=== PATIENT | male | born 2000 | race Hispanic/Latino ===

== ENCOUNTER 2025-03-30 18:56 | Inpatient (IN) | payer OTHER ==
[~2025-03-30] VITALS: Ht 170.2 cm; Wt 59.7 kg
[2025-03-30 20:27] LABS: PLATELET COUNT, AUTOMATED 230 10^3/uL (150-450)
[2025-03-30 20:45] LABS: ETHYL ALCOHOL (ETHANOL) < 0.003 % (0.000-0.010)
[2025-03-30 20:47] LABS: ALT/SGPT 12 U/L (7.0-40); AST/SGOT 11 U/L (<34); CALCIUM LEVEL 9.5 MG/DL (8.5-10.1); CARBON DIOXIDE LEVEL 27 MMOL/L (20-31); CHLORIDE LEVEL 103 MMOL/L (98-107); CREATININE FOR GFR 1.00 MG/DL (0.70-1.30); GLOMERULAR FILTRATION RATE > 90.0 (>60); POTASSIUM SERUM 3.9 MMOL/L (3.5-5.1); SALICYLATE LEVEL < 3.0 MG/DL (<30); SODIUM LEVEL 143 MMOL/L (136-145)
[2025-03-30 20:54] LABS: AMPHETAMINES LEVEL URINE NEGATIVE (NEGATIVE); BARBITURATES URINE NEGATIVE (NEGATIVE); BENZODIAZEPINES URINE NEGATIVE (NEGATIVE); CANNABINOIDS URINE NEGATIVE (NEGATIVE); COCAINE METABOLITE URINE NEGATIVE (NEGATIVE); METHADONE URINE NEGATIVE (NEGATIVE); OPIATES URINE NEGATIVE (NEGATIVE); PHENCYCLIDINE URINE NEGATIVE (NEGATIVE)
[2025-03-30] MEDS ORDERED: HOME MED LIST COMPLETE! XX SCH (21:05)
[2025-03-30] MEDS ORDERED: MOM 30 ML SUSPENSION UDC PO PRN (21:45)
[2025-03-30] MEDS ORDERED: IBUPROFEN 400 MG TAB PO PRN (21:45)
[2025-03-30] MEDS ORDERED: MAALOX 30 ML SUSP *UDC PO PRN (21:45)
[2025-03-30] MEDS ORDERED: ACETAMINOPHEN 325 MG TAB PO PRN (21:45)
[2025-03-30 23:00] VITALS: BP_SYST 67; TEMP 98.2; O2SAT 100
[2025-03-31 06:27] VITALS: BP 100/52; TEMP 98.7; O2SAT 100
[2025-03-31 15:14] VITALS: BP 111/68; TEMP 98.3; O2SAT 99
[2025-03-31] MEDS: traZODone 50 MG TAB PO PRN (20:30)
[2025-04-01 06:33] VITALS: BP 96/56; TEMP 98.5; O2SAT 100
[2025-04-01] MEDS: SERTRALINE HCL 50 MG TAB PO SCH (11:44)
[2025-04-01 15:22] VITALS: BP 97/56; TEMP 98.5; O2SAT 98
[2025-04-01] MEDS: RAMELTEON 8 MG TAB PO SCH (20:20)
[2025-04-02 06:29] VITALS: BP 142/77; TEMP 96.9; O2SAT 99
[2025-04-02] MEDS ORDERED: RAME8TAB2 PO (08:58)
[2025-04-02] MEDS ORDERED: SERT50TA29 PO (08:58)
== END 2025-04-02 13:14 | disposition home or self-care (01) | DRG 881 ==
LOC: M ED 18:56 → M ED INP 21:42 → M PSY 22:25
PROVIDERS: ADMIT Student in an Organized Health Care Education/Training Program; ATTEND Student in an Organized Health Care Education/Training Program
DX: F43.21 Adjustment disorder with depressed mood (principal); R45.851 Suicidal ideations; F43.10 Post-traumatic stress disorder, unspecified; F17.290 Nicotine dependence, other tobacco product, uncomplicated; Z63.0 Problems in relationship with spouse or partner; Z91.82 Personal history of military deployment; Z62.810 Personal history of physical and sexual abuse in childhood